=== PATIENT | male | born 1945 | race Caucasian/White ===

== ENCOUNTER → 2016-08-27 | Outpatient (REF) | payer MEDICARE, OTHER ==
[2016-08-27 13:24] LABS: CALCIUM LEVEL 8.8 MG/DL (8.8-10.2); CREATININE FOR GFR 1.93 MG/DL (0.70-1.30); GLOMERULAR FILTRATION RATE 36.9 (>49); POTASSIUM SERUM 3.8 MEQ/L (3.5-5.1)
== END ==
LOC: M SFHCCLAY 09:28
PROVIDERS: ATTEND Family Medicine
DX: E11.21 Type 2 diabetes mellitus with diabetic nephropathy (principal)
CPT/HCPCS: 80048; 82043; G0463

== ENCOUNTER → 2016-12-13 | Day surgery (SDC) | payer MEDICARE, OTHER ==
[~2016-12-13] VITALS: Ht 177.8 cm; Wt 90.7 kg
[~2016-12-13] MED LIST: ALBU17IN INH; ALBUTEROL SULFATE 2.5 MG/0.5 ML INH NEB SOLN INH ONE; AMLO10TA2 PO; ATEN50TA2 PO; D5W 1,000 ML IV SCH; EPINEPHrine 1MG/10ML SYRINGE 1.5IN As Ordered ONE; FISH1000 PO; GARL500T PO; GLIM2TA PO; HYDR25TAB PO; LEVO500T32 PO; LIDOCAINE 1% SDV INJ 30 ML VIAL As Ordered ONE; LIDOCAINE 4% INJ 5 ML AMP As Ordered ONE; LIDOCAINE 4% TOPICAL SOLN 50 ML BTL As Ordered ONE; LIDOCAINE VISCOUS 2% SOLN 15ML UDC As Ordered ONE; LOSA100T36 PO; METF500T4 PO; METF750T PO; MIDAZOLAM INJ 2 MG/2 ML VIAL (J2250) As Ordered ONE; MULT1TAB10 PO; PANT40TA2 PO; PRED20TA PO; SIMV20TA2 PO; THROMBIN SOLN 5,000 UNITS VIAL As Ordered ONE; [UNRECOGNIZED DRUG - CODE] TD; dexameTHASONE 4 MG/ML 1ML VIAL (J1100) As Ordered ONE; fentaNYL 100 MCG/2 ML INJECTION (J3010) As Ordered ONE
[2016-12-13 12:10] LABS: TOTAL PROTEIN 6.8 GM/DL (6.4-8.2)
--- NOTE | 2016-12-13 15:07 | RO ---
DATE OF PROCEDURE: 12/13/2016 PREOPERATIVE DIAGNOSIS: Right pleural effusion. POSTOPERATIVE DIAGNOSIS: Right pleural effusion. FINDINGS: Large right pleural fluid was seen under ultrasound. PROCEDURE: Right sided ultrasound guided thoracentesis. SURGEON: Gibson Xiao DO. CLINICAL NURSE OCCUPATIONAL MEDICINE: None. ANESTHESIA: 1% lidocaine, 10 mL. ESTIMATED BLOOD LOSS: Less than 1 mL. No significant blood loss. REPLACED: None. SPECIMENS: 1300 mL of right pleural fluid. DRAINS: None. COMPLICATIONS: None. DESCRIPTION OF PROCEDURE: After the patient was brought back to the OR suite, he was in a sitting position. The right posterior thorax was ultrasounded. The largest fluid collection was marked on the skin. After this the patient was prepped and draped in a sterile manner with chlorhexidine and full barrier precautions. Time-out was then performed confirming correct side, correct procedure with two patient identifiers. 1% lidocaine was then instilled subcutaneously down to the level of the pleura with return of yellow fluid. The needle was removed and the Arrow trocar from the OR thoracentesis kit was advanced into the pleural space with return of yellow fluid. The catheter was advanced and the trocar was removed. After 1300 mL were removed, there was decreased return of fluid and therefore the procedure was stopped. The catheter was removed under exhalation. A Band-Aid was applied over the site. There are no observed complications.
--- NOTE | 2016-12-13 15:12 | REP ---
Clinical: Status post bronchoscopy. Comparison: None. Findings: A large right hilar mass is identified. Lung buchanan demonstrate diffuse increased interstitial markings which may reflect acute and/or chronic changes. No obvious effusion. No pneumothorax. Cardiac silhouette is normal. Skeletal structures are intact. Impression: Large right hilar mass. Acute and/or chronic diffuse interstitial changes. Signed by Ryan Valdez MD 12/13/2016 03:03 P
[2016-12-13 15:15] VITALS: BP 130/71
--- NOTE | 2016-12-13 15:20 | RO ---
DATE OF PROCEDURE: 12/13/2016 PREOPERATIVE DIAGNOSIS: Right upper lobe mass. POSTOPERATIVE DIAGNOSIS: Right upper lobe mass. PROCEDURE: Bronchoscopy with endobronchial ultrasound. SURGEON: Gibson Xiao DO. NURSE PRACTITIONER PHYSICIANS ASSISTANT: None. ANESTHESIA: Conscious sedation managed by anesthesia. Please see their records for details. SPECIMENS OBTAINED: 1. Cyto-[place] right upper lobe. 2. Forceps biopsies right upper lobe. 3. Fine needle aspiration (FNA) of the subcarinal and 4R node. COMPLICATIONS: None observed. ESTIMATED BLOOD LOSS: Less than 10 mL REPLACED: None, DRAINS: None. DESCRIPTION OF PROCEDURE: After informed consent was reviewed with the patient in preop area, he was brought back to the OR. After thoracentesis, a second time-out was performed identifying correct site, correct procedure. Posterior pharynx was first anesthetized with 4% lidocaine down to level of the cords. After adequate anesthetization in the posterior pharynx, the patient was initiated under conscious sedation. After adequate sedation the Q190 bronchoscope was introduced into the airway. Posterior airway was normal. Vocal cords approximated normally. Vocal cords were anesthetized with 1% lidocaine. Bronchoscope was then advanced into the airway. Trachea was midline. Mame was fairly sharp. Right and left mainstem bronchus was normal until the take off of the right upper lobe. The spur between the right upper lobe and the right lower lobe was splayed. There was significant hypervascularity of the area along with the right upper lobe. There was a mass extending into the anterior segment of the right upper lobe. Apical and posterior segments of the right upper lobe were clear without endobronchial lesions. RV 4-10 was also clear without endobronchial lesions. Left mainstem was normal. LV 1-10 was without lesions except for banding and pitting. The bronchoscope was then advanced after anesthetization of the airway with 1% lidocaine. The bronchoscope was advanced into the right upper lobe. A brush was used to take samples of the right upper lobe lesion. There was significant hemorrhage. Epinephrine was used on this area. I performed one endobronchial forceps biopsy of the right upper lobe lesion, again had significant bleeding, therefore this sampling was stopped. Hemostasis was assured and then endobronchial ultrasound was inserted. There was subcarinal nodes visible and therefore biopsy was started here. There was some suggestion of abnormal cells on cytology, small in nature. I also obtained biopsies from the 4R node. Due to a significant amount of bleeding and coughing samples had to be stopped. Samples will be sent for cell blocking.
[2016-12-13 15:29] LABS: RBC PLEURAL FLUID < 10 (<10mm3 cells/uL); TNC PLEURAL FLUID 1204 cells/uL (0-20)
[2016-12-13 15:30] LABS: BF DIFF IF INDICATED? YES (NO)
[2016-12-13 15:48] LABS: LDH, BODY FLUID 104 U/L (NOT ESTABLISHED); TOTAL PROTEIN, BODY FLUID 2.9 G/DL (NOT ESTABLISHED)
[2016-12-13 16:47] LABS: CC BF DIFF EXAM UNSPUN
== END | disposition home or self-care (01) ==
LOC: M SDC 10:55 → EDSTATUS 12:30
PROVIDERS: ATTEND Internal Medicine Pulmonary Disease
DX: R91.8 Other nonspecific abnormal finding of lung field (principal); J90 Pleural effusion, not elsewhere classified; E11.9 Type 2 diabetes mellitus without complications; Z85.118 Personal history of other malignant neoplasm of bronchus and lung; K21.9 Gastro-esophageal reflux disease without esophagitis; Z79.899 Other long term (current) drug therapy; J18.9 Pneumonia, unspecified organism; Z87.891 Personal history of nicotine dependence
CPT/HCPCS: 31623; 31628; 31629; 32555; 36415; 71010; 82150; 82945; 83615; 83986; 84155; 84157; 87070; 87102; 87116; 87205; 87206; 88104; 88108; 88172; 88173; 88305; 88313; 89051; J1100; J2250; J3010

== ENCOUNTER → 2017-01-17 | Day surgery (SDC) | payer MEDICARE, OTHER ==
[~2017-01-17] VITALS: Ht 177.8 cm; Wt 88.5 kg
[~2017-01-17] MED LIST changes: +ALBU83IN INH; +ALBUTEROL SULFATE 2.5 MG/0.5 ML INH NEB SOLN As Ordered ONE; +AMLO25TA PO; +AMOX500T2 PO; -D5W 1,000 ML IV SCH; +FURO20TA2 PO; +GLIM1TAB PO; +LEVO500T3 PO; -LEVO500T32 PO; +LIDOCAINE 1% SDV 5 ML VIAL SQ ONE; +LIDOCAINE 2% INJ 100 MG/5 ML SDV (FOR ANES.) As Ordered ONE; -LIDOCAINE 4% INJ 5 ML AMP As Ordered ONE; -LIDOCAINE 4% TOPICAL SOLN 50 ML BTL As Ordered ONE; +LR 1,000 ML IV SCH; +ONDANSETRON 4MG/2ML VIAL (J2405) As Ordered ONE; +POTA1TAB14 PO; +PROPOFOL 200 MG/20 ML VIAL As Ordered ONE; +ROCURONIUM BROMIDE 50 MG/5 ML VIAL/SYRINGE As Ordered ONE; +SUCCINYLCHOLINE 100 MG/5 ML SYRINGE (J0330) As Ordered ONE; +VITMTA PO; -dexameTHASONE 4 MG/ML 1ML VIAL (J1100) As Ordered ONE
[2017-01-17 06:15] LABS: MEAN CORPUSCULAR HEMOGLOBIN 31.1 pg (27.0-33.0); MEAN CORPUSCULAR HGB CONC 34.9 g/dl (32.0-36.5); MEAN CORPUSCULAR VOLUME 89.2 fl (80.0-96.0); RED CELL DISTRIBUTION WIDTH 13.1 % (11.5-14.5); WHITE BLOOD COUNT 13.5 K/mm3 (4.0-10.0)
[2017-01-17 06:56] VITALS: BP 167/79
--- NOTE | 2017-01-17 14:47 | REP ---
REASON: Followup. COMPARISON: Portable 12/13/2016. There is a large right hilar mass which is unchanged. There is new cardiophrenic angle and costophrenic angle blunting on the right. There are no left lung field changes. The heart is not enlarged. There is no change in the osseous structures. IMPRESSION: Right pleural effusion which is new from the prior exam. Right hilar mass which is large and appears to be unchanged when the technical differences between the examinations are taken into consideration. Consider followup with chest CT. Signed by Josh Ruiz DO 01/18/2017 11:29 A
== END | disposition home or self-care (01) ==
LOC: M SDC 05:54
PROVIDERS: ATTEND Internal Medicine Pulmonary Disease
DX: R91.8 Other nonspecific abnormal finding of lung field (principal); Z53.09 Procedure and treatment not carried out because of other contraindication; R05 Cough
CPT/HCPCS: 36415; 71020; 85027; J2250; J3010

== ENCOUNTER → 2017-01-28 | Outpatient (REF) | payer MEDICARE, OTHER ==
[~2017-01-28] MED LIST changes: -ALBUTEROL SULFATE 2.5 MG/0.5 ML INH NEB SOLN As Ordered ONE; -ALBUTEROL SULFATE 2.5 MG/0.5 ML INH NEB SOLN INH ONE; -EPINEPHrine 1MG/10ML SYRINGE 1.5IN As Ordered ONE; -LIDOCAINE 1% SDV 5 ML VIAL SQ ONE; -LIDOCAINE 1% SDV INJ 30 ML VIAL As Ordered ONE; -LIDOCAINE 2% INJ 100 MG/5 ML SDV (FOR ANES.) As Ordered ONE; -LIDOCAINE VISCOUS 2% SOLN 15ML UDC As Ordered ONE; -LR 1,000 ML IV SCH; -MIDAZOLAM INJ 2 MG/2 ML VIAL (J2250) As Ordered ONE; -ONDANSETRON 4MG/2ML VIAL (J2405) As Ordered ONE; -PROPOFOL 200 MG/20 ML VIAL As Ordered ONE; -ROCURONIUM BROMIDE 50 MG/5 ML VIAL/SYRINGE As Ordered ONE; -SUCCINYLCHOLINE 100 MG/5 ML SYRINGE (J0330) As Ordered ONE; -THROMBIN SOLN 5,000 UNITS VIAL As Ordered ONE; -fentaNYL 100 MCG/2 ML INJECTION (J3010) As Ordered ONE
[2017-01-28 13:47] LABS: INR 0.83
== END ==
LOC: M LAB REF 13:18
PROVIDERS: ATTEND Internal Medicine Pulmonary Disease
DX: R91.8 Other nonspecific abnormal finding of lung field (principal); N18.9 Chronic kidney disease, unspecified

== ENCOUNTER 2017-02-07 18:39 | Inpatient (IN) | payer MEDICARE, OTHER ==
[~2017-02-07] VITALS: Ht 179.1 cm; Wt 100.2 kg
[~2017-02-07 18:39] MED LIST changes: -ALBU83IN INH; -AMLO25TA PO; -FURO20TA2 PO; -POTA1TAB14 PO; -VITMTA PO
[2017-02-07] MEDS ORDERED: VITMTA PO (22:16)
[2017-02-07] MEDS ORDERED: ALBU83IN INH (22:18)
[2017-02-07] MEDS: HumaLOG INSULIN (NovoLOG) PER UNIT SC SCH (22:30)
[2017-02-07 22:59] VITALS: BP 162/78
[2017-02-07] MEDS ORDERED: ALBUTEROL SULFATE 2.5 MG/0.5 ML INH NEB SOLN INH PRN (23:15)
[2017-02-07] MEDS ORDERED: GLUCAGON FOR INJ 1 MG VIAL (J1610) SC PRN (23:15)
[2017-02-07] MEDS ORDERED: GLUCOSE 4 GM CHEW TABLET PO PRN (23:15)
[2017-02-07] MEDS ORDERED: DEXTROSE 50% 50 ML SYRINGE IV PRN (23:15)
[2017-02-07] MEDS ORDERED: ALBUTEROL 90 MCG/ACT 8GM HFA INHALER INH PRN (23:15)
[2017-02-07 23:59] VITALS: BP 137/81
[2017-02-08] VITALS (9 sets, daily range): BP systolic 123–160; BP diastolic 75–90
[2017-02-08 05:35] LABS: BASO # 0.1 K/mm3 (0.0-0.2); BASO % 0.7 % (0.0-1.0); EOS # 0.1 K/mm3 (0.0-0.50); LARGE UNSTAINED CELL # 0.2 K/mm3 (0.0-0.4); LARGE UNSTAINED CELL % 2.5 % (0.0-4.0); LYMPH # 1.7 K/mm3 (1.5-4.5); LYMPH % 17.6 % (24.0-44.0); MEAN CORPUSCULAR HEMOGLOBIN 31.4 pg (27.0-33.0); MEAN CORPUSCULAR HGB CONC 34.8 g/dl (32.0-36.5); MEAN CORPUSCULAR VOLUME 90.4 fl (80.0-96.0); MONO # 0.6 K/mm3 (0.0-0.8); MONO % 7.4 % (0.0-5.0); NEUTROPHILS % 70.7 % (36.0-66.0); PLATELET COUNT, AUTOMATED 243 k/mm3 (150-450); RED CELL DISTRIBUTION WIDTH 13.8 % (11.5-14.5); WHITE BLOOD COUNT 8.6 K/mm3 (4.0-10.0)
[2017-02-08 05:50] LABS: CALCIUM LEVEL 9.6 MG/DL (8.8-10.2); CREATININE FOR GFR 1.75 MG/DL (0.70-1.30); GLOMERULAR FILTRATION RATE 41.3 (>49); POTASSIUM SERUM 3.6 MEQ/L (3.5-5.1)
--- NOTE | 2017-02-08 07:26 | HPEPDOC ---
General Date of Admission Feb 07, 2017 at 18:39 Primary Care Physician: Frantz Guaman MD Attending Physician: GUDELIA VILLATORO MD Chief Complaint The patient is a 71-year-old male admitted with a reason for visit of Pleural Effusion. Source: Patient, Family Exam Limitations: No limitations Timing/Duration: Week(s), Getting worse Severity: Moderate Associated Symptoms: Cough, Shortness of breath, Weakness History of Present Illness Mr. Riddle is a 71 year old male who is a direct admission from [facility] with the complaint of increasing shortness of breath. He is accompanied by his who provides some of the history. Past medical history is significant for hypertension, dyslipidemia, diabetes mellitus, history of basal cell carcinoma, history of cutaneous hyperkeratosis, history of cutaneous squamous cell carcinoma, history of dermal fibrosis, and recent history of pneumonia. Patient states that he is having worsening shortness of breath. He reports a recent history of pneumonia in November. He was placed on antibiotics at that time and reports improvement in his symptoms. During his evaluation at that time a pleural effusion and mass were discovered. At that time he was transferred to [facility] for oncology and then to [facility] for bronchoscopy. All testing at that time was negative for malignancy. Patient continued to have shortness of breath and cough and was placed on antibiotics outpatient by pulmonology. Patient reported improvement in his symptoms. However, after completion of antibiotics , patient again reported worsening of his shortness of breath and a cough productive of clear phlegm. He presented to [facility] with symptoms of dyspnea. Labs and a chest x-ray were done. The chest x-ray showed a right- sided pleural effusion with an intrathoracic mass. According to [facility] documentation [facility] was contacted in order to transfer patient for thoracentesis. During my evaluation, apart from current symptoms listed above, patient also reports a chest tightness which he attributes to the "fluid around his lung." The patient states that the chest tightness improves when his is in the slightly supine recumbent position. He is not able to change the character of the chest tightness with cough or lateral recumbency. The patient reports that prior to November and his diagnosis of pneumonia he was healthy and able to perform all of his ADLs, walk up and down a flight of stairs, and walk a city block without becoming short of breath. He is not oxygen-dependent; however, he is on oxygen at time of evaluation. He states that the albuterol inhaler and nebulizer treatments do improve his shortness of breath. Patient admits to orthopnea, PND, weakness, sore throat (which patient attributes to albuterol use), bilateral lower extremity swelling, and 40# weight loss since October 2016. Hospitalist service was contacted and patient was admitted for further medical management. Home Medications Scheduled Amlodipine Besylate (Norvasc) 2.5 Mg Tab, 2.5 MG PO DAILY Atenolol (Atenolol) 50 Mg Tab, 50 MG PO DAILY, (Reported) Fish Oil (Fish Oil) 1,000 Mg Cap, 1,000 MG PO DAILY, (Reported) Furosemide (Furosemide) 20 Mg Tab, 60 MG PO DAILY Garlic (Garlic) 500 Mg Tab, 1,000 MG PO DAILY, (Reported) Losartan Potassium (Losartan Potassium) 100 Mg Tab, 100 MG PO DAILY, (Reported) Multivitamins *[facility] STOCKED* (Thera M Plus *[facility] STOCKED*) 1 Tab Tab, 1 TAB PO DAILY, (Reported) Potassium Chloride (Potassium Chloride ER) 20 Meq Tab, 20 MEQ PO DAILY Simvastatin (Simvastatin) 20 Mg Tab, 20 MG PO DAILY, (Reported) Scheduled PRN Albuterol Sulfate (Ventolin Hfa) 200 Puff/8 Gm Aers, 2 PUFF INH QID PRN for SHORTNESS OF BREATH, (Reported) Albuterol Sulfate (Albuterol Sulfate) 2.5 Mg/3 Ml Nebu, 1 VIAL INH QID PRN for SHORTNESS OF BREATH, (Reported) Allergies Coded Allergies: No Known Drug Allergy (Unverified Allergy, Unknown, NONE, 01/21/17) Past Medical History Medical History 1. Hypertension 2. Diabetes mellitus 3. Dyslipidemia 4. History of pneumonia 5. Intrathoracic mass 6. History of right-sided pleural effusion 7. History of basal cell carcinoma 8. History of cutaneous hyperkeratosis 9. History of cutaneous squamous cell carcinoma 10. History of dermal fibrosis Surgical History 1. Bronchoscopy with EUS 2. Thoracentesis Family History Father: Unknown Mother: Esophageal cancer, lobectomy secondary to lung cancer One biological brother: from consultations of type 1 diabetes 2 half brothers: Healthy Social History Lives independently with 2 adult daughters, 5 grandchildren, 5 great-grandchildren Recent former tobacco user, 3 packs per day for many years, half a pack per day for the last couple weeks, quit 5 days ago Denies illicit drug abuse Denies alcohol Denies domestic or international travel Previously employed in construction Denies pets in the home Review of Symptoms Constitutional: Reports: Weakness, Denies: Chills, Fever, Night Sweats Eyes: Denies: Pain, Vision change, Conjunctivae inflammation, Eyelid inflammation ENT: Reports: Sore Throat, Denies: Head Aches, Dysphagia, Sinus Congestion, Post Nasal Drip, Epistaxis Skin: Denies: Rash, Lesions, Jaundice, Bruising Pulmonary: Reports: Dyspnea, Cough (productive of phlegm), Denies: Pleuritic Chest Pain Cardiovascular: Reports: Orthopnea, Paroxysmal Noc. Dyspnea, Edema (bilateral lower extremity), Denies: Chest Pain, Palpitations, Lt Headedness Gastrointestinal: Denies: Nausea, Vomiting, Abdominal Pain, Diarrhea, Constipation, Melena, Hematochezia Genitourinary: Denies: Dysuria, Frequency, Incontinence, Hematuria, Retention Hematologic: Denies: Bruising, Bleeding Excessively Endocrine: Denies: Polydipsia, Polyphagia, Polyuria Musculoskeletal: Denies: Neck Pain, Back Pain, Joint Pain Neurological: Reports: Weakness Physical Examination General Exam: Positive: Alert, Cooperative, No Acute Distress Eye Exam: Positive: PERRLA, Conjunctiva & lids normal, EOMI, Negative: Sclera icteric, Ptosis ENT Exam: Positive: Atraumatic, Mucous membr. moist/pink, Pharynx Normal, Tongue Midline, Nares Patent, Other ENT (edentulous), Negative: Pharyngeal Edema Neck Exam: Positive: Supple, +2 carotid pulse wo bruit, Negative: JVD, thyromegaly, Lymphadenopathy Chest Exam: Positive: Clear to auscultation, Normal air movement, Diminished ( on the right side) Heart Exam: Positive: Rate Normal, Regular Rhythm, Normal S1, Normal S2, Negative: Gallops, Murmurs, Rubs Telemetry: Positive: No significant arrhythmia Abdomen Exam: Positive: Normal bowel sounds, Soft, Negative: Tenderness, Hepatospenomegaly, Mass, Hernia Extremity Exam: Positive: Edema (+1 pitting edema to the level of the knee bilaterally), Normal pulses, Negative: Clubbing, Cyanosis, Tenderness Skin Exam: Positive: Other skin issue (erythematous patches noted diffusely across face and neck) Neuro Exam: Positive: Normal Speech, Strength at 5/5 X4 ext, Cranial Nerves 3- 12 NL Vital Signs Vital Signs Date Time Temp Pulse Resp B/P (MAP) Pulse Ox O2 Delivery O2 Flow Rate FiO2 02/07/17 22:59 97.5 79 20 162/78 (106) 94 Nasal Cannula 1.0 Height (in): 70.5 Weight (kg): 93.2 BMI (kg): 29.1 Laboratory Data Labs 24H Laboratory Tests 2 02/07/17 22:51: Bedside Glucose (Misc Panel) 129H RAD Interpretation STUDY: CXR Rad Actions: Films Reviewed RAD Interpretation: Other Result Comments: (right-sided pleural effusion and right-sided intrathoracic mass noted) Assessment/Plan This is a 71 year old male with a past medical history significant for hypertension, diabetes mellitus, dyslipidemia, history of pneumonia, and multiple skin lesions who was a direct admission from [facility] with worsening shortness of breath, medium sized right pleural effusion, and intrathoracic mass noted on imaging. Plan / VTE VTE Prophylaxis Ordered?: Yes (TEDs and sequentials with knee-high compression) Plan Plan Dyspnea Could be secondary to pleural effusion, congestive heart failure, or mass effect from intrathoracic mass compressing inferior vena cava resulting in SVC syndrome. Continue patient on albuterol nebulizer and inhaler for symptomatic relief. Obtain echocardiogram. Perform therapeutic thoracentesis with associated pleural fluid analysis. Hypertension Continue current medication regimen. Diabetes mellitus Continue patient with sliding scale insulin. Dyslipidemia Continue patient on current medication regimen. Disposition Admit: Progressive care unit Anticipated hospitalization: 2 nights Attending: Dr. Griffith Diet: Continue Current Activity: Continue Current Diagnostics: Check Labs, Repeat Labs in AM, TTE, Other Diagnostics ( therapeutic thoracentesis) Anticipated Discharge: Home ISA ENAMORADO Feb 07, 2017 23:36
[2017-02-08] MEDS: HumaLOG INSULIN (NovoLOG) PER UNIT SC SCH ×4 (07:40→21:00)
--- NOTE | 2017-02-08 08:49 | REP ---
CHEST X-RAY: Two views. HISTORY: Shortness of breath. Comparison chest x-ray January 17, 2017. Comparison CT study December 24, 2016. FINDINGS: There is a bulky adenopathy in the right paratracheal and right hilar region consistent with malignancy. There is some volume loss in the right hemithorax with elevation of the right hemidiaphragm and small right pleural effusion evident. This is a little more prominent than on the prior study. There is fissural thickening along the minor fissure which is slightly more prominent. The lateral view suggests consolidation or partial collapse in the right upper lobe adjacent to the minor fissure. Left lung remains clear. Heart is not enlarged. IMPRESSION: Slight increase in the amount of right pleural fluid. Some increased consolidation and collapse right upper lobe. Signed by Bryant Ceballos MD 02/08/2017 09:54 A
[2017-02-08] MEDS ORDERED: amLODIPine 10 MG TAB PO SCH (09:00)
[2017-02-08] MEDS ORDERED: hydroCHLOROthiazide 25 MG TAB PO SCH (09:00)
[2017-02-08] MEDS: LOSARTAN 50 MG TAB PO SCH (09:19)
[2017-02-08] MEDS: ATENOLOL 50 MG TAB PO SCH (09:20)
[2017-02-08] MEDS: SIMVASTATIN 20 MG TAB PO SCH (09:20)
--- NOTE | 2017-02-08 10:25 | IPNPDOC ---
Subjective Date Seen The patient was seen on 02/08/17. Subjective Chief Complaint/HPI The patient is a 71-year-old male admitted with a reason for visit of Pleural Effusion. Events since last encounter Still unable to lay flat to sleep - makes him SOB and cough. Constitutional: Denies: Chills, Fever Pulmonary: Reports: Dyspnea, Cough Cardiovascular: Denies: Chest Pain, Palpitations Gastrointestinal: Denies: Nausea, Vomiting, Abdominal Pain, Diarrhea, Constipation Objective Physical Examination General Exam: Positive: Alert, Cooperative, No Acute Distress Eye Exam: Negative: Ptosis ENT Exam: Negative: Pharyngeal Edema Neck Exam: Negative: JVD, thyromegaly, Lymphadenopathy Chest Exam: Positive: Clear to auscultation, Diminished (on the right side), Negative: Rales, Rhonchi, Wheezing Heart Exam: Positive: Rate Normal, Regular Rhythm, Normal S1, Normal S2, Gallops, Negative: Murmurs Telemetry: Positive: No significant arrhythmia Abdomen Exam: Positive: Normal bowel sounds, Soft, Negative: Tenderness Male Exam: Positive: Edema (1+ edema BL) Extremity Exam: Positive: Edema (+1 pitting edema to the level of the knee bilaterally) Skin Exam: Positive: Other skin issue Assessment /Plan Problems (1) Congestive heart failure Status: Acute Problem Text: 02/08 BNP 58, K 3.3; therefore, + furosemide 60 po QD and K 20 BID (decrease amlo 10 to 2.5 QD) 02/07 TTE P (2) Pleural effusion, right Status: Chronic Response to Treatment: Worse Problem Text: 02/08 d/w Dr. Xiao-plans bronchoscopy in AM to make probable cancer dx in order to start palliative XRT 02/07 CXR c increase pleural effusion; therefore, s/p 02/08 tesis He has increased orthopnea, PND, [place] 02/07/17 TTE P (3) Mass of right lung Status: Chronic Problem Text: right upper lobe mass Per Dr. iXao - he is scheduled for Ct guided biopsy Tuesday, but she would like to try to get it done while he is here if patient can tolerate it. He gets very SOB and coughs when laying flat, so may need to diurese first and possible perform thoracentesis (4) Diabetes mellitus Status: Chronic Response to Treatment: Stable Problem Text: fair control on SSNI metformin 500 BID and glim 1 held (5) HTN (hypertension) Status: Chronic Response to Treatment: Stable Problem Text: Fair control on HD atenolol 50, HCTZ 25, amlo 10, losartan 100 (6) CKD (chronic kidney disease) Status: Chronic Response to Treatment: Stable Problem Text: 02/08/17 1.8 baseline cr 1.8 Plan/VTE VTE Prophylaxis Ordered?: Yes (TEDs and sequentials with knee-high compression) Plan Diet: Continue Current Activity: Continue Current Diagnostics: Check Labs, Repeat Labs in AM, TTE, Other Diagnostics ( therapeutic thoracentesis) Anticipated Discharge: Home VS, I&O, 24H, Fishbone Vital Signs/I&O Vital Signs Date Time Temp Pulse Resp B/P (MAP) Pulse Ox O2 Delivery O2 Flow Rate FiO2 02/08/17 09:20 89 145/85 02/08/17 07:41 Nasal Cannula 2.0 02/08/17 07:15 98.4 20 91 I&O- Last 24 Hours up to 6 AM 02/08/17 06:00 Intake Total 0 ml Output Total 500 ml Balance -500 ml Laboratory Data 24H LABS Laboratory Tests 2 02/07/17 22:51: Bedside Glucose (Misc Panel) 129H 02/08/17 05:11: White Blood Count 8.6, Red Blood Count 5.01, Hemoglobin 15.7, Hematocrit 45.3, Mean Corpuscular Volume 90.4, Mean Corpuscular Hemoglobin 31.4, Mean Corpuscular Hemoglobin Concent 34.8, Red Cell Distribution Width 13.8, Platelet Count 243, Neutrophils (%) (Auto) 70.7H, Lymphocytes (%) (Auto) 17.6L, Monocytes (%) (Auto) 7.4H, Eosinophils (%) (Auto) 1.0, Basophils (%) (Auto) 0.7 , Neutrophils # (Auto) 6.0, Lymphocytes # (Auto) 1.7, Monocytes # (Auto) 0.6, Eosinophils # (Auto) 0.1, Basophils # (Auto) 0.1, Large Unclassified Cells % 2.5 , Large Unclassified Cells # 0.2, Anion Gap 11, Glomerular Filtration Rate 41.3L , Blood Urea Nitrogen 30H, Creatinine 1.75H, Sodium Level 141, Potassium Level 3.6, Chloride Level 102, Carbon Dioxide Level 28, Calcium Level 9.6 CBC/BMP Laboratory Tests 02/08/17 05:11 Red Blood Count 5.01, Mean Corpuscular Volume 90.4, Mean Corpuscular Hemoglobin 31.4, Mean Corpuscular Hemoglobin Concent 34.8, Red Cell Distribution Width 13.8 , Neutrophils (%) (Auto) 70.7 H, Lymphocytes (%) (Auto) 17.6 L, Monocytes (%) ( Auto) 7.4 H, Eosinophils (%) (Auto) 1.0, Basophils (%) (Auto) 0.7, Neutrophils # (Auto) 6.0, Lymphocytes # (Auto) 1.7, Monocytes # (Auto) 0.6, Eosinophils # ( Auto) 0.1, Basophils # (Auto) 0.1, Calcium Level 9.6 MEREDITH TORREZ PA-C Feb 08, 2017 10:25 Cosme Griffith M.D. Feb 08, 2017 14:30
[2017-02-08] MEDS ORDERED: FUROSEMIDE 100 MG/10 ML VIAL (J1940) IV SCH (12:00)
--- NOTE | 2017-02-08 12:09 | REP ---
CHEST, TWO VIEWS: Two views of the chest are performed and compared to prior study of the same day. Patient had right thoracentesis and there is no pneumothorax. Right pleural fluid has decreased. Right lung mass is again noted. Left lung remains clear. IMPRESSION: No pneumothorax status post right thoracentesis. Signed by Garth Morse MD 02/08/2017 04:41 P
[2017-02-08 12:11] LABS: LDH, BODY FLUID 401 U/L (NOT ESTABLISHED); TOTAL PROTEIN, BODY FLUID 2.8 G/DL (NOT ESTABLISHED)
[2017-02-08 16:37] LABS: ALBUMIN 2.4 GM/DL (3.2-5.2); CALCIUM LEVEL 8.8 MG/DL (8.8-10.2); CREATININE FOR GFR 1.79 MG/DL (0.70-1.30); GLOMERULAR FILTRATION RATE 40.3 (>49); MAGNESIUM LEVEL 2.2 MG/DL (1.8-2.4); PHOSPHORUS LEVEL 3.7 MG/DL (2.5-4.9); POTASSIUM SERUM 3.3 MEQ/L (3.5-5.1)
--- NOTE | 2017-02-08 17:42 | REP ---
RIGHT THORACENTESIS: The procedure was performed by KRISTIAN Alford under the direct supervision of Dr. Morse. The procedure along with its risks, benefits, and complications were discussed with the patient prior to the procedure. Informed consent was obtained both verbally and written. The patient was identified in the ultrasound suite and placed in a seated position. The right lung field was evaluated with ultrasound. An appropriate site was chosen for needle entry and this area was marked, prepped, and draped in the usual sterile fashion. A procedural "time out" was performed to ensure that the correct patient, site and procedure were being performed. Local infiltrative anesthesia was achieved using 1% Xylocaine. A 19 gauge centesis catheter was advanced through the ribs into the pleural space under continuous negative pressure until serous fluid was aspirated. The needle was removed and the catheter was advanced. Approximately 1,020 mL of dark straw colored fluid were removed. The catheter was then removed, hemostasis was achieved and a soft dressing was applied to the entry site. The patient tolerated the procedure well and had no immediate complications. He was discharged back to the floor. Reviewed by KRISTIAN Medina 02/08/2017 05:53 PEdited and Signed by Garth Morse MD 02/09/2017 04:34 P
--- NOTE | 2017-02-08 18:17 | REP ---
CT CHEST WITHOUT IV CONTRAST: CT chest was performed without IV contrast and compared to prior study of 12/24/[address] [facility]. Axial images are obtained using protocol. Sagittal and coronary reconstruction imaged are performed. There appears to be a large right hilar mass. Margins are not well defined due to the lack of IV contrast. Approximate diameter is 5.8 cm. It does appear to have increased in size since the prior CT scan. Another bulky mass is seen in the right paratracheal region which also have appears to have increased in size, currently measuring about 7.6 cm in maximum diameter. Subtle low density areas within the mass suggest areas of necrosis. Multiple enlarged lymph nodes are seen in the adjacent right paratracheal region and anterior mediastinum. There is bulky subcarinal adenopathy measuring 3.6 x 2.7 cm. Consolidation is seen in the more peripheral right upper lobe anteriorly. There is mild right lower lobe atelectasis/infiltrate with a small right effusion. 7 mm nodular density is seen in the right middle lobe. There is a 5 mm nodular density posteriorly in the right lower lobe. There are two 5 mm nodular densities in the left lower lobe. A few calcified granulomas are seen in the left lung. There are scattered areas of interstitial fibrosis bilaterally. Heart is not enlarged. Scattered atherosclerotic calcifications are seen in the thoracic aorta. There is no aneurysm. There is no pericardial effusion. In the visualized portions of the upper abdomen there are multiple liver nodules present compatible with metastatic lesions in the liver. There are multiple gallstones in the gallbladder. Multiple tiny calcifications in the pancreas are compatible with prior pancreatitis. Please note that the nodules in the liver have significantly increased in size and number. IMPRESSION: Enlarging right hilar and peritracheal masses with adjacent adenopathy. The mass and adenopathy have increased in size since the prior study. There is peripheral consolidation in the anterior right upper lobe. There is right lower lobe atelectasis/infiltrate with a small right effusion. Increased number in size of multiple liver nodules compatible with metastatic lesions. Signed by Garth Morse MD 02/09/2017 04:37 P
[2017-02-08] MEDS ORDERED: SLF 3 ML SYR IV PRN (19:00)
[2017-02-08] MEDS: SLF 3 ML SYR IV SCH (21:04)
--- NOTE | 2017-02-08 23:12 | ECHO ---
DATE OF PROCEDURE: 02/08/2017 REFERRING PHYSICIAN: Dr. Dianne Mcdonald INDICATION: Localized edema. HEIGHT: 178 cm WEIGHT: 93.2 kg MEASUREMENTS: Left atrium: 3.9 cm Left ventricle diastole: 4.2 cm Ventricular septum: 1.13 cm Posterior wall: 1.03 cm Aortic root: 3.4 cm LVOT: 2.4 cm Inferior vena cava: 1.9 cm DOPPLER MEASUREMENTS: Aortic valve velocity: 106 cm/s LVOT velocity: 93.5 cm/s LVOT VTI: 18.2 cm Mitral E velocity: 76.2 cm/s Mitral A velocity: 108 cm/s Mitral deceleration time: 225 ms Very mild tricuspid regurgitation Estimated right ventricle systolic pressure: 54 mmHg assuming a pressure of 5 mmHg Pulmonary artery systolic pressure: 49 mmHg by pulmonary acceleration time. MITRAL ANNULAR TISSUE DOPPLER: E prime septal: 6.5 cm/s E prime lateral: 8.5 cm/s DESCRIPTION: Rhythm was sinus. Image quality was fair. No pericardial effusion. This was a 2D, M-mode, color flow Doppler and pulse wave Doppler examination and included mitral annular tissue Doppler. CONCLUSIONS: 1. Normal left ventricle internal dimensions and wall thickness. No regional LV wall motion abnormalities. Hyperdynamic LV systolic function. LVEF 75% by visual estimate. Grade 1 LV diastolic dysfunction (impaired relaxation filling pattern). 2. Suggestive of moderate elevation of estimated right ventricle systolic pressure (54 mmHg). Suggestive of moderate elevation of pulmonary artery systolic pressure. Very mild tricuspid regurgitation. Normal right ventricle size and systolic function. 3. Mild aortic valve sclerosis of a 3-cuspid aortic valve. 4. No pericardial effusion. Copy To: Dr. Tawanda Chiu
[2017-02-09] VITALS (9 sets, daily range): BP systolic 117–167; BP diastolic 60–93
[2017-02-09 05:43] LABS: ALBUMIN 2.3 GM/DL (3.2-5.2); ALBUMIN/GLOBULIN RATIO 0.58 (1.00-1.93); BASO % 0.7 % (0.0-1.0); BILIRUBIN,DIRECT 0.2 MG/DL (0.0-0.2); BILIRUBIN,TOTAL 0.8 MG/DL (0.2-1.0); CALCIUM LEVEL 8.8 MG/DL (8.8-10.2); CREATININE FOR GFR 1.62 MG/DL (0.70-1.30); EOS # 0.1 K/mm3 (0.0-0.50); GLOMERULAR FILTRATION RATE 45.2 (>49); LARGE UNSTAINED CELL # 0.3 K/mm3 (0.0-0.4); LARGE UNSTAINED CELL % 3.1 % (0.0-4.0); LYMPH # 1.3 K/mm3 (1.5-4.5); LYMPH % 16.2 % (24.0-44.0); MEAN CORPUSCULAR HEMOGLOBIN 31.8 pg (27.0-33.0); MEAN CORPUSCULAR HGB CONC 35.7 g/dl (32.0-36.5); MONO # 0.5 K/mm3 (0.0-0.8); MONO % 6.7 % (0.0-5.0); NEUTROPHILS # 5.8 K/mm3 (1.8-7.7); NEUTROPHILS % 72.4 % (36.0-66.0); PLATELET COUNT, AUTOMATED 245 k/mm3 (150-450); POTASSIUM SERUM 3.5 MEQ/L (3.5-5.1); RED CELL DISTRIBUTION WIDTH 13.5 % (11.5-14.5); TOTAL PROTEIN 6.3 GM/DL (6.4-8.2)
[2017-02-09] MEDS: SLF 3 ML SYR IV SCH ×3 (06:37→22:00)
[2017-02-09] MEDS: HumaLOG INSULIN (NovoLOG) PER UNIT SC SCH ×4 (07:30→21:00)
[2017-02-09] MEDS: LOSARTAN 50 MG TAB PO SCH (08:24)
[2017-02-09] MEDS: FUROSEMIDE 20 MG TAB PO SCH (08:25)
[2017-02-09] MEDS: ATENOLOL 50 MG TAB PO SCH (08:26)
[2017-02-09] MEDS: POTASSIUM CHLORIDE 10 MEQ SR TABLET PO SCH (08:26)
[2017-02-09] MEDS: SIMVASTATIN 20 MG TAB PO SCH (08:26)
--- NOTE | 2017-02-09 10:11 | IPNPDOC ---
Subjective Date Seen The patient was seen on 02/09/17. Subjective Chief Complaint/HPI The patient is a 71-year-old male admitted with a reason for visit of Pleural Effusion. Events since last encounter Patient reports he is less SOB with less orthopnea Constitutional: Denies: Chills, Fever Pulmonary: Reports: Dyspnea, Cough Cardiovascular: Denies: Chest Pain, Palpitations Gastrointestinal: Denies: Nausea, Vomiting, Abdominal Pain, Diarrhea, Constipation Objective Physical Examination General Exam: Positive: Alert, Cooperative, No Acute Distress Neck Exam: Negative: thyromegaly Chest Exam: Positive: Clear to auscultation, Diminished (on the right side), Negative: Rales, Rhonchi, Wheezing Heart Exam: Positive: Rate Normal, Regular Rhythm, Normal S1, Normal S2, Negative: Murmurs Telemetry: Positive: No significant arrhythmia Abdomen Exam: Positive: Normal bowel sounds, Soft, Negative: Tenderness Extremity Exam: Positive: Edema (trace edema BL) Assessment /Plan Problems (1) Congestive heart failure Status: Acute Problem Text: 02/09 - kidney function improved today; K 3.5. 02/08 BNP 58, K 3.3; therefore, + furosemide 60 po QD and K 20 BID (decrease amlo 10 to 2.5 QD) Echo - Normal LV size without wall motion abnormalities, EF 75%, Moderate elevation Right Vent.systolic pressure, mod pulm artery systolic pressure (2) Pleural effusion, right Status: Chronic Response to Treatment: Worse Problem Text: 02/09 - s/p thorocentesis 02/08 - 1000 cc fluid removed. Less Dyspnea and orthopnea. Cytology pending Dr. Xiao-plans bronchoscopy today to make probable cancer dx in order to start palliative XRT 02/07 CXR c increase pleural effusion; therefore, s/p 02/08 tesis (3) Mass of right lung Status: Chronic Problem Text: right upper lobe mass - see above - bronch scheduled for today (4) Diabetes mellitus Status: Chronic Response to Treatment: Stable Problem Text: fair control on SSNI metformin 500 BID and glim 1 held (5) HTN (hypertension) Status: Chronic Response to Treatment: Stable Problem Text: Fair control on HD atenolol 50, HCTZ 25, amlo 10, losartan 100 (6) CKD (chronic kidney disease) Status: Chronic Response to Treatment: Stable Problem Text: 02/08/17 1.8 baseline cr 1.8 Plan/VTE VTE Prophylaxis Ordered?: Yes (TEDs and sequentials with knee-high compression) Plan Diet: Continue Current Activity: Continue Current Diagnostics: Check Labs, Repeat Labs in AM, TTE, Other Diagnostics ( therapeutic thoracentesis) Anticipated Discharge: Home Family Medicine Attending Note: Patient seen and examined this morning; I discussed with EDDIE Chen and I agree with her note above. Patient states breathing is greatly improved today; plan is bronchoscopy this morning by Dr. Xiao. AST and ALT elevated - likely due to known liver nodules (likely mets). (KES) Disposition Probable d/c in am if stable after bronch VS, I&O, 24H, Fishbone Vital Signs/I&O Vital Signs Date Time Temp Pulse Resp B/P (MAP) Pulse Ox O2 Delivery O2 Flow Rate FiO2 02/09/17 08:26 82 129/71 02/09/17 07:52 97.0 20 95 Nasal Cannula 2.0 I&O- Last 24 Hours up to 6 AM 02/09/17 06:00 Intake Total 1155 ml Output Total 775 ml Balance 380 ml Laboratory Data 24H LABS Laboratory Tests 2 02/08/17 11:50: Bedside Glucose (Misc Panel) 105 02/08/17 15:15: Blood Urea Nitrogen 29H, Creatinine 1.79H, Sodium Level 139, Potassium Level 3.3L, Chloride Level 102, Carbon Dioxide Level 25, Anion Gap 12, Glomerular Filtration Rate 40.3L, Calcium Level 8.8, Phosphorus Level 3.7, Magnesium Level 2.2, Lactate Dehydrogenase 649H, B-Type Natriuretic Peptide 58.0, Total Protein 6.0L, Albumin 2.4L 02/08/17 16:55: Bedside Glucose (Misc Panel) 120H 02/08/17 20:30: Bedside Glucose (Misc Panel) 112 02/09/17 04:58: White Blood Count 8.0, Red Blood Count 4.75, Hemoglobin 15.1, Hematocrit 42.3, Mean Corpuscular Volume 89.0, Mean Corpuscular Hemoglobin 31.8, Mean Corpuscular Hemoglobin Concent 35.7, Red Cell Distribution Width 13.5, Platelet Count 245, Neutrophils (%) (Auto) 72.4H, Lymphocytes (%) (Auto) 16.2L, Monocytes (%) (Auto) 6.7H, Eosinophils (%) (Auto) 1.0, Basophils (%) (Auto) 0.7 , Neutrophils # (Auto) 5.8, Lymphocytes # (Auto) 1.3L, Monocytes # (Auto) 0.5, Eosinophils # (Auto) 0.1, Basophils # (Auto) 0.0, Large Unclassified Cells % 3.1 , Large Unclassified Cells # 0.3, Anion Gap 12, Glomerular Filtration Rate 45.2L , Calcium Level 8.8, Magnesium Level 2.0, Aspartate Amino Transf (AST/SGOT) 131H , Alanine Aminotransferase (ALT/SGPT) 188H, Alkaline Phosphatase 207H, Total Bilirubin 0.8, Direct Bilirubin 0.2, B-Type Natriuretic Peptide 117H, Total Protein 6.3L, Albumin 2.3L, Albumin/Globulin Ratio 0.58L CBC/BMP Laboratory Tests 02/08/17 15:15 Anion Gap 12 02/09/17 04:58 Red Blood Count 4.75, Mean Corpuscular Volume 89.0, Mean Corpuscular Hemoglobin 31.8, Mean Corpuscular Hemoglobin Concent 35.7, Red Cell Distribution Width 13.5 , Neutrophils (%) (Auto) 72.4 H, Lymphocytes (%) (Auto) 16.2 L, Monocytes (%) ( Auto) 6.7 H, Eosinophils (%) (Auto) 1.0, Basophils (%) (Auto) 0.7, Neutrophils # (Auto) 5.8, Lymphocytes # (Auto) 1.3 L, Monocytes # (Auto) 0.5, Eosinophils # (Auto) 0.1, Basophils # (Auto) 0.0 Microbiology Microbiology 02/07/17 Body Fluid Culture, Received Pending MEREDITH TORREZ PA-C Feb 09, 2017 10:11 SAMMIE MOREL MD Feb 09, 2017 10:28
[2017-02-09] MEDS ORDERED: EPINEPHrine 1MG/10ML SYRINGE 1.5IN As Ordered ONE (10:32)
[2017-02-09] MEDS ORDERED: THROMBIN SOLN 20,000 UNITS KIT As Ordered ONE (10:52)
[2017-02-09] MEDS ORDERED: MIDAZOLAM INJ 2 MG/2 ML VIAL (J2250) As Ordered ONE (10:54)
[2017-02-09] MEDS ORDERED: fentaNYL 250 MCG/5 ML INJECTION (J3010) As Ordered ONE (10:54)
[2017-02-09] MEDS ORDERED: LIDOCAINE 2% INJ 100 MG/5 ML SDV (FOR ANES.) As Ordered ONE (10:55)
[2017-02-09] MEDS ORDERED: ROCURONIUM BROMIDE 50 MG/5 ML VIAL/SYRINGE As Ordered ONE (10:55)
[2017-02-09] MEDS ORDERED: ePHEDrine SULFATE 25 MG/5 ML(5MG/ML) SYRINGE As Ordered ONE (10:55)
[2017-02-09] MEDS ORDERED: PROPOFOL 200 MG/20 ML VIAL As Ordered ONE (10:55)
[2017-02-09] MEDS ORDERED: PHENYLephrine HCL 500 MCG/5 ML (100MCG/ML) SYRINGE (J2370) As Ordered ONE ×2 (10:55→11:23)
[2017-02-09] MEDS ORDERED: GLYCOPYRROLATE INJ 0.2 MG/ML 2 ML VIAL As Ordered ONE (11:16)
[2017-02-09] MEDS ORDERED: NEOSTIGMINE 1MG/ML 5 ML SYRINGE (J2710) As Ordered ONE (11:17)
[2017-02-09] MEDS ORDERED: LR 1,000 ML IV SCH (12:00)
[2017-02-09] MEDS ORDERED: ONDANSETRON 4MG/2ML VIAL (J2405) IV PRN (12:00)
[2017-02-09] MEDS ORDERED: MEPERIDINE INJ 25 MG/ML VIAL (J2175) IV PRN (12:00)
[2017-02-09] MEDS ORDERED: fentaNYL 100 MCG/2 ML INJECTION (J3010) IV PRN (12:00)
[2017-02-09] MEDS ORDERED: PERCOCET 5MG/325MG TAB PO PRN (12:00)
[2017-02-09] MEDS ORDERED: METOCLOPRAMIDE INJ 10MG/2ML VIAL (J2765) IV PRN (12:00)
--- NOTE | 2017-02-09 12:11 | CR ---
DATE OF CONSULTATION: 02/08/2017 REQUESTED BY: Jessie Moyer PA-C REASON FOR CONSULTATION: Abnormal chest CT. Mr. Riddle is a 71-year-old male, well-known to me for suspected cancer. His last two diagnostic tests were cancelled. I had him in mind for another diagnostic test next week. In the meantime, he developed increased shortness breath, worsening orthopnea. He had a small pleural effusion, which was drained today, approximately 1.5 liters. He states he feels a little less chest tightness but is still orthopneic, cannot lay flat and is unable to perform a CT-guided biopsy. We discussed performing bronchoscopy in order to facilitate diagnosis for what I believe is a primary lung malignancy. I believe he has a large right-sided mass that is likely causing his symptoms. He expresses understanding. He wishes to proceed with bronchoscopy. He was consented at bedside. He states he did have orthopnea, shortness breath with minimal exertion, cough, which is minimally productive, no hemoptysis. No headache. He did have increased lower extremity edema, pitting in nature. Apparently, he states he was being placed on diuretics to help him with his fluid retention and this has gone done since his admission. PHYSICAL EXAMINATION: Temperature is 97.5, pulse is 84, respiratory rate 20, blood pressure is 151/79, oxygen saturation 95% on 2 liters. The patient is sitting upright, approximately 70 degrees. No accessory muscle use. HEENT: Sclerae are clear, anicteric. Pupils equal and reactive to light. Minimal scleral injection without icterus. Tongue is midline without lesions. Neck is supple. No tracheal deviation or mass. No elevated jugular venous pulse (JVP). Cardiac: Regular, S1, S2. Without audible murmur, rub or gallop. No elevated JVP. There is peripheral edema, pitting to the level of the mid calf. Compression stockings are in place. Pulmonary: Clear to auscultation anteriorly and posteriorly. Decreased breath sounds on the right. No dullness to percussion. No rhonchi or wheeze. There is a slight prolongation of the expiratory phase. Abdomen is soft, nontender, nondistended. Without hepatosplenomegaly. No discernible mass. No normoactive bowel sounds. Extremities: As mentioned above as far as edema. Skin: He has diffuse rash from psoriasis. No jaundice. No bruising. Musculoskeletal: Fairly well developed for age. No evidence of joint effusion or fracture. LABORATORY EVALUATION: Shows a white blood cell count of 8.6, hemoglobin 15.7, hematocrit of 45.3 with a platelet count of 243, neutrophilia of 70. Chemistry panel : Sodium is 141, potassium is 3.6, chloride is 102, bicarbonate is 28, BUN is 30, creatinine is 1.75, calcium is 9.6. Chest x-ray again shows a large right mass concerning for malignancy adjacent to the right hilum projecting into the right upper lobe. There is some consolidation and atelectasis of the right upper lobe. There is also volume loss on the right with right pleural effusion. IMPRESSION: 1. Abnormal chest imaging. Both abnormal chest x-ray and outpatient abnormal chest CT were reviewed by me. Plan is to facilitate biopsy as soon as possible due to my suspicion of underlying malignancy. His diagnosis has been delayed for a number of reasons. He had been having recurrent infections. He did not show up for his last bronchoscopy as he states he was coughing too much. I expressed the importance of obtaining a diagnosis so we can initiate treatment. He expresses understanding and wishes to have the bronchoscopy done. I have discussed the risks of bronchoscopy including bleeding, pneumothorax, pain, shortness of breath and respiratory failure. He expresses understanding. He is on no blood thinners. My ultimate suspicion is that of malignancy. 2. Orthopnea. Possibly related to the malignancy. He is having an echocardiogram today to make sure there is no evidence of pericardial effusion. His pleural effusion has been treated with both diagnostic and therapeutic thoracentesis. However, he has had no relief of his symptoms. 3. Hypoxia. Adequate on oxygen replacement on 2 liters. 4. Lower extremity edema. Possibly secondary to pulmonary hypertension. Either World Health Organization (WHO) group 2 or WHO group 3. Echocardiogram will be helpful in evaluating this. Thank you for this consultation. ZAINA
--- NOTE | 2017-02-09 12:36 | RO ---
DATE OF PROCEDURE: 02/09/2017 PREOPERATIVE DIAGNOSIS: Right upper lobe mass. POSTOPERATIVE DIAGNOSIS: Right upper lobe mass. FINDINGS: Compressed anterior segment. PROCEDURE: Bronchoscopy with endobronchial ultrasound. PROCEDURALIST: Dr. Xiao ANESTHESIA: General: Please refer to their records for details. [employer]ODUCTION [employer]ERKS SUPERVISOR: None. SPECIMENS: 1. Endobronchial biopsies right upper lobe. 2. Bronchiolar lavage right upper lobe. #. Fine-needle aspiration right pretracheal, subcarinal and right hilar nodes. DRAINS: None COMPLICATIONS: None. DESCRIPTION OF PROCEDURE: After informed consent was reviewed with the patient in the preoperative area, he was brought back to operating room #8. Time-out was performed with two patient identifiers, identifying correct site, correct procedure. General anesthesia was initiated with a 9.0 endotracheal tube. The case was then handed over to me. I used Cetacaine spray for lubrication and anesthetization of the airway. The 1T-180 bronchoscope was then inserted into the airway. The trachea was slightly displaced with convexity on the right. The shoshana was splayed. Right and left mainstem bronchus had minimal secretions. The take off to the right upper lobe was significantly abnormal, hypervascular with a splayed spur between the right upper and right bronchus intermedius. The anterior segment was completely occluded and appeared to be mostly external compression; however, there was nodularity to the tissue on the anterior surface. The posterior and apical segments were patent but compressed. RB 4 through 10 was without endobronchial lesion. LB 1-10 was clear without endobronchial lesions or airway compression. The bronchoscope was then inserted in the right upper lobe. Forceps biopsies were taken of the anterior segment. Two were obtained and both had significant bleeding after to the point where I had to give epinephrine and thrombin. Due to significant amount of bleeding, no other pathology could be obtained. I therefore went to fine-needle aspiration with endobronchial ultrasound. The bronchoscope was removed. The endobronchial ultrasound was inserted. There was a large right pretracheal mass. A large subcarinal node measuring over 4 cm and a large right hilar mass. All three of these were sampled. On-site cytology suggested abnormal cells. Cells were obtained for cell block. The patient had bleeding with each of the FNA samples. After adequate sampling, I then performed a lavage of the right upper lobe and sent for cytology. All airways were suctioned. Hemostasis was confirmed and the bronchoscope was removed. Other than minimal amount of bleeding that was ultimately controlled, there were no complications. Postprocedure chest x-ray is pending.
--- NOTE | 2017-02-09 12:49 | REP ---
PORTABLE CHEST: AP portable view of the chest is performed and compared to a prior study of 02/08/2017. Right lung mass is again noted. There is no pneumothorax. The left lung is unchanged. IMPRESSION: No pneumothorax. Right lung mass. Signed by Garth Morse MD 02/09/2017 04:43 P
[2017-02-09] MEDS: CEPACOL LOZENGE PO PRN ×2 (14:59→19:51)
[2017-02-09] MEDS ORDERED: ACETAMINOPHEN TAB 650MG DOSE (2X325MG) PO PRN ×2 (15:15→16:00)
[2017-02-09] MEDS: LIDOCAINE 5% (LIDODERM) PATCH TD SCH (16:22)
[2017-02-09] MEDS ORDERED: **NOTE PATIENT COMMENT** MISC XX SCH (21:00)
[2017-02-10 00:53] VITALS: BP 134/66
[2017-02-10 04:45] VITALS: BP 131/72
[2017-02-10 05:35] LABS: BASO # 0.1 K/mm3 (0.0-0.2); BASO % 0.4 % (0.0-1.0); EOS % 0.4 % (0.0-3.0); LARGE UNSTAINED CELL # 0.3 K/mm3 (0.0-0.4); LARGE UNSTAINED CELL % 2.1 % (0.0-4.0); LYMPH # 2.3 K/mm3 (1.5-4.5); LYMPH % 12.9 % (24.0-44.0); MEAN CORPUSCULAR HGB CONC 34.9 g/dl (32.0-36.5); MEAN CORPUSCULAR VOLUME 88.9 fl (80.0-96.0); MONO # 1.1 K/mm3 (0.0-0.8); MONO % 6.9 % (0.0-5.0); NEUTROPHILS # 11.8 K/mm3 (1.8-7.7); NEUTROPHILS % 77.3 % (36.0-66.0); PLATELET COUNT, AUTOMATED 231 k/mm3 (150-450); RED CELL DISTRIBUTION WIDTH 13.9 % (11.5-14.5); WHITE BLOOD COUNT 15.2 K/mm3 (4.0-10.0)
[2017-02-10 05:45] LABS: CREATININE FOR GFR 1.9 MG/DL (0.70-1.30); GLOMERULAR FILTRATION RATE 37.6 (>49); POTASSIUM SERUM 3.7 MEQ/L (3.5-5.1)
[2017-02-10] MEDS: SLF 3 ML SYR IV SCH (05:50)
[2017-02-10] MEDS: HumaLOG INSULIN (NovoLOG) PER UNIT SC SCH (07:38)
[2017-02-10 08:00] VITALS: BP 125/70
[2017-02-10] MEDS: ATENOLOL 50 MG TAB PO SCH (09:12)
[2017-02-10] MEDS: SIMVASTATIN 20 MG TAB PO SCH (09:12)
[2017-02-10 09:13] VITALS: BP 125/70
[2017-02-10] MEDS: LOSARTAN 50 MG TAB PO SCH (09:13)
[2017-02-10] MEDS: FUROSEMIDE 20 MG TAB PO SCH (09:14)
[2017-02-10] MEDS: POTASSIUM CHLORIDE 10 MEQ SR TABLET PO SCH (09:14)
[2017-02-10] MEDS: LIDOCAINE 5% (LIDODERM) PATCH TD SCH (09:15)
[2017-02-10] MEDS ORDERED: FURO20TA2 PO (09:19)
[2017-02-10] MEDS ORDERED: AMLO25TA PO (09:19)
[2017-02-10] MEDS ORDERED: POTA1TAB14 PO (09:19)
[2017-02-10] MEDS: CEPACOL LOZENGE PO PRN (10:21)
--- NOTE | 2017-02-11 11:01 | DSES ---
DATE OF ADMISSION: 02/07/2017 DATE OF DISCHARGE: 02/10/2017 BRIEF HISTORY AND PHYSICAL: The patient is a 71-year-old patient of Dr. Roque who was direct admission from [facility] with complaint of increased shortness of breath and a chest x-ray showing a increased pleural effusion for which thoracentesis was felt to be necessary. PAST MEDICAL HISTORY: Is significant for suspected cancer with two diagnostic tests that were cancelled in the past with Dr. Xiao. He has had a bronchoscopy in the past that was unrevealing and attempts to obtain CT guided biopsy recently have been cancelled because the patient was hypoxemic when laying down and unable to lay down for extended period of time to undergo that test. Other past medical history significant for hypertension, diabetes mellitus type 2, dyslipidemia, a history of right-sided pleural effusion and right lung mass with postobstructive pneumonia, basal cell carcinoma, squamous cell carcinoma and dermid fibrosis. PERTINENT LABS ON ADMISSION: Sodium 141, potassium 3.6, BUN 30, creatinine 1.75, glucose 105, white count 8.6, hemoglobin 15.7, platelets 243,000. Chest x-ray showed slight increase in the amount of right pleural fluid with some increased consolidation and collapse of the right upper lobe. Echocardiogram showed normal left ventricular dimensions and wall thickness with no regional left ventricular wall motion abnormalities. Ejection fraction 75%. There is a moderate elevation of the estimated right ventricular systolic pressure suggestive of moderate elevation of pulmonary artery systolic pressure and mild tricuspid regurgitation, normal right ventricular size and systolic function, mild aortic sclerosis. No pericardial effusion. HOSPITAL COURSE: The patient was admitted for right hypoxemia, dyspnea, and orthopnea related to right lung mass with right upper lobe collapse and increased right pleural effusion. 1. Right pleural effusion. Thoracentesis was performed on 02/08/2017, approximately 1 liter of fluid was removed and although the cytology was negative for malignancy this still felt that the right upper lobe mass is a cancer. 2. Right upper lobe mass. CT of the chest on 02/08 showed enlarging right hilar and paratracheal masses with adjacent adenopathy. The mass and adenopathy have increased in size from previous study. There is peripheral consolidation in the anterior right upper lobe. There is right lobe atelectasis infiltrate with a small effusion increased in number and size with multiple liver nodules compatible with metastatic lesions. Patient underwent bronchoscopy on 02/09/[address] 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 The pathology on the bronchoscopy biopsy is pending, however, she does recommend referral to oncology and the patient was like to be seen in [place] by Dr. Kayla Choi, the patient's follows with this oncologist. 3. Hypoxemia secondary to above issues including pleural effusion and lung mass. His oxygen saturations dropped to 82% on room air. He will be discharged home on 2 liters nasal cannula. Also hospital bed has been ordered due to his significant orthopnea. 4. Right sided heart failure. He did have edema and then a pleural effusion. Diuretics were initiated to include Lasix 60 mg daily. He will be sent home on 60 mg of furosemide daily. His hydrochlorothiazide has been discontinued. His renal function will need to be monitored as an outpatient. 5. Chronic kidney disease. Renal function at the time of discharge is 31 and 1.9. The creatinine is up slightly from admission with a diuretic and this will need to be monitored. 6. Elevated liver enzymes generally that I presume this is related to the liver metastases, his bilirubin is normal. Patient is on simvastatin 20 mg daily, this may need to be discontinued. 7. Diabetes mellitus type 2. His medications, glimepiride and metformin were held during the hospitalization, he was on sliding scale but his sugars have ranged between 112 and 160 off of his metformin and glimepiride due to his renal function the metformin has been held this point. He may need the glimepiride or metformin restarted as an outpatient, I will defer this to Dr. Guaman in followup once we see how his sugars are running in now well he is eating. 8. Hypertension. Blood pressures remained controlled. Again his hydrochlorothiazide was switched to furosamide, he is on his usual dose of atenolol and losartan. DISPOSITION: The patient is stable for discharge home to followup with Dr. Guaman next week and followup with Dr. Xiao per her office. He will need a referral to Dr. Kayla Choi, the oncologist in [place]. Diet - No added salt. Activity as tolerated. Oxygen 2 liters nasal cannula. MEDICATIONS: - amlodipine 2.5 mg daily - formamide 60 mg daily - potassium 20 mEq daily - albuterol nebulizer four times a day - atenolol 50 mg daily - fish oil 1000 mg daily - garlic 1000 mg daily - losartan 100 mg daily - multivitamin daily - simvastatin 20 mg daily - glimepiride, hydrochlorothiazide, and metformin of all been discontinued - amlodipine has been decreased to 0.5 mg daily DISCHARGE DIAGNOSES: 1. Acute respiratory failure with hypoxemia 2. Right pleural effusion. 3. 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 4. Chronic renal failure. 5. Hypertension. 6. Diabetes mellitus type 2. 7. Hyperlipidemia.
== END 2017-02-10 13:05 | disposition home or self-care (01) | DRG 167 ==
LOC: M PCU 18:39
PROVIDERS: ADMIT Internal Medicine; ATTEND Family Medicine
PROC: 0W993ZZ Drainage of Right Pleural Cavity, Percutaneous Approach (ICD-10-PCS; 2017-02-08)
PROC: 0B948ZX Drainage of Right Upper Lobe Bronchus, Via Natural or Artificial Opening Endoscopic, Diagnostic (ICD-10-PCS; 2017-02-09)
PROC: 07974ZX Drainage of Thorax Lymphatic, Percutaneous Endoscopic Approach, Diagnostic (ICD-10-PCS; principal; 2017-02-09 08:45)
PROC: 0BBC8ZX Excision of Right Upper Lung Lobe, Via Natural or Artificial Opening Endoscopic, Diagnostic (ICD-10-PCS; 2017-02-09 08:45)
DX: C34.11 Malignant neoplasm of upper lobe, right bronchus or lung (principal); J90 Pleural effusion, not elsewhere classified; I13.0 Hypertensive heart and chronic kidney disease with heart failure and stage 1 through stage 4 chronic kidney disease, or unspecified chronic kidney disease; R09.02 Hypoxemia; N18.9 Chronic kidney disease, unspecified; I50.9 Heart failure, unspecified; E11.9 Type 2 diabetes mellitus without complications; E78.5 Hyperlipidemia, unspecified; Z79.899 Other long term (current) drug therapy; Z87.891 Personal history of nicotine dependence; Z83.3 Family history of diabetes mellitus; Z80.1 Family history of malignant neoplasm of trachea, bronchus and lung; Z80.0 Family history of malignant neoplasm of digestive organs

== ENCOUNTER → 2017-02-17 | Outpatient (CLI) | payer MEDICARE, OTHER ==
[~2017-02-17] MED LIST changes: +ALBU83IN INH; +AMLO25TA PO; +FURO20TA2 PO; +POTA1TAB14 PO; +VITMTA PO
--- NOTE | 2017-02-17 15:53 | REP ---
CHEST, TWO VIEWS: HISTORY: Pleural effusion. COMPARISON: 02/09/2017 Patchy density is present in the right lower lobe consistent with atelectasis or infiltrate. A mass is present in the right hilar and paratracheal area. A right pleural effusion is present that is decreased compared to the previous study. The left lung is clear. The heart is normal in size. The pulmonary vasculature is normal in appearance. Degenerative change is present in the thoracic spine. IMPRESSION: 1. Right lower lobe infiltrate, decreased compared to the previous study. 2. Right hilar paratracheal mass, unchanged compared to the previous study. 3. Small right pleural effusion, unchanged compared to the previous study.
== END ==
LOC: M CLY 15:04
PROVIDERS: ATTEND Family Medicine
DX: R91.8 Other nonspecific abnormal finding of lung field (principal)
CPT/HCPCS: 71020; 80048; G0463

== ENCOUNTER → 2017-02-17 | Outpatient (REF) | payer MEDICARE, OTHER ==
[2017-02-18 12:15] LABS: CALCIUM LEVEL 9.1 MG/DL (8.8-10.2); CREATININE FOR GFR 1.54 MG/DL (0.70-1.30); GLOMERULAR FILTRATION RATE 47.9 (>49); POTASSIUM SERUM 4.3 MEQ/L (3.5-5.1)
== END ==
LOC: M SFHCCLAY 15:04
PROVIDERS: ATTEND Family Medicine
DX: C34.91 Malignant neoplasm of unspecified part of right bronchus or lung (principal); J90 Pleural effusion, not elsewhere classified

== ENCOUNTER → 2017-02-17 | Outpatient (REF) | payer MEDICARE, OTHER | LOC: M SFHCCLAY 15:04 | PROVIDERS: ATTEND Family Medicine | DX: C34.91 Malignant neoplasm of unspecified part of right bronchus or lung (principal); J90 Pleural effusion, not elsewhere classified ==

== ENCOUNTER → 2017-03-30 | Outpatient (REF) | payer MEDICARE, OTHER ==
[2017-03-30 19:54] LABS: BASO % 0.1 % (0.0-1.0); EOS # 0.1 10^3/uL (0.0-0.50); EOS % 0.8 % (0.0-3.0); IMMATURE GRANULOCYTE % 1.2 % (0-0); LYMPH # 0.5 10^3/uL (1.5-4.5); LYMPH % 2.8 % (24.0-44.0); MEAN CORPUSCULAR HEMOGLOBIN 32.2 pg (27.0-33.0); MEAN CORPUSCULAR VOLUME 97.6 fl (80.0-96.0); MONO # 0.7 10^3/uL (0.0-0.8); MONO % 3.6 % (0.0-5.0); NEUTROPHILS # 16.7 10^3/uL (1.8-7.7); NEUTROPHILS % 91.5 % (36.0-66.0); PLATELET COUNT, AUTOMATED 307 10^3/uL (150-450); RED CELL DISTRIBUTION WIDTH 15.6 % (11.5-14.5); WHITE BLOOD COUNT 18.3 10^3/uL (4.0-10.0)
[2017-03-30 20:07] LABS: ALBUMIN 2.5 GM/DL (3.2-5.2); ALBUMIN/GLOBULIN RATIO 0.76 (1.00-1.93); BILIRUBIN,TOTAL 0.5 MG/DL (0.2-1.0); CALCIUM LEVEL 8.9 MG/DL (8.8-10.2); CREATININE FOR GFR 1.88 MG/DL (0.70-1.30); POTASSIUM SERUM 4.3 MEQ/L (3.5-5.1); TOTAL PROTEIN 5.8 GM/DL (6.4-8.2)
== END ==
LOC: M SFHCCLAY 10:47
PROVIDERS: ATTEND Family Medicine
DX: C34.91 Malignant neoplasm of unspecified part of right bronchus or lung (principal)
CPT/HCPCS: 36415; 80053; 85025; G0463

== ENCOUNTER → 2017-04-05 | Outpatient (REF) | payer MEDICARE, OTHER ==
[2017-04-05 17:48] LABS: MEAN CORPUSCULAR HEMOGLOBIN 32.4 pg (27.0-33.0); MEAN CORPUSCULAR HGB CONC 33.1 g/dl (32.0-36.5); MEAN CORPUSCULAR VOLUME 97.7 fl (80.0-96.0); RED CELL DISTRIBUTION WIDTH 14.9 % (11.5-14.5); WHITE BLOOD COUNT 12.3 10^3/uL (4.0-10.0)
[2017-04-05 19:17] LABS: ALBUMIN 2.3 GM/DL (3.2-5.2); ALBUMIN/GLOBULIN RATIO 0.77 (1.00-1.93); BILIRUBIN,TOTAL 0.3 MG/DL (0.2-1.0); CALCIUM LEVEL 8.7 MG/DL (8.8-10.2); CREATININE FOR GFR 1.42 MG/DL (0.70-1.30); GLOMERULAR FILTRATION RATE 52.5 (>42); TOTAL PROTEIN 5.3 GM/DL (6.4-8.2); URIC ACID 4.9 MG/DL (3.5-7.2)
== END ==
LOC: M LAB REF 17:24
PROVIDERS: ATTEND Internal Medicine Hematology & Oncology
DX: N17.9 Acute kidney failure, unspecified (principal); E88.3 Tumor lysis syndrome; D47.3 Essential (hemorrhagic) thrombocythemia